=== PATIENT | male | born 1980 | race Caucasian/White ===

== ENCOUNTER → 2021-11-10 | Outpatient (CLI) | payer OTHER ==
--- NOTE | 2021-11-10 14:20 | KCIC ---
EXAMINATION: MRI LEFT LOWER EXTREMITY JOINT WITHOUT INDICATIONS: New onset medial left knee pain after injury playing basketball. TECHNIQUE: Multiplanar multisequence MRI of the left knee was obtained without contrast. COMPARISON: None. FINDINGS: MENISCI: Small horizontal tear of the medial meniscus body extends to the inferior surface. There is linear high signal extending into the substance of the posterior horn medial meniscus. Lateral menis cus is intact. LIGAMENTS: The anterior and posterior cruciate ligaments are intact. The medial collateral ligament and lateral collateral ligament complex are intact. EXTENSOR MECHANISM: The quadriceps and patellar tendons are intact. Fat pads are normal. Retinacula are intact. BONES AND CARTILAGE: There is partial-thickness cartilage loss along the trochlear groove. Patellar cartilage is intact. Medial and lateral compartment cartilage is intact. No acute fracture. Marrow si gnal is normal. OTHER: There is no joint effusion. Mild edema at the posterior medial aspect of the knee. No signifi cant White cyst. Muscles and remaining tendons are normal. IMPRESSION: 1. Horizontal tear of the body medial meniscus surfacing inferiorly. 2. Mild patellofemoral cartilage loss. Electronically signed by: Alem Tang MD (11/10/2021 2:17 PM) [id number]
== END ==
LOC: KCIC MRI 10:31
PROVIDERS: ATTEND Family Medicine
DX: S83.242A Other tear of medial meniscus, current injury, left knee, initial encounter (principal); M22.3X2 Other derangements of patella, left knee; M25.862 Other specified joint disorders, left knee; X58.XXXA Exposure to other specified factors, initial encounter; Y93.67 Activity, basketball; Y92.89 Other specified places as the place of occurrence of the external cause; Y99.8 Other external cause status
CPT/HCPCS: 73721